=== PATIENT | female | born 1965 | race Caucasian/White ===

== ENCOUNTER 2016-11-22 08:35 | Emergency (ER) | payer MEDICAID, OTHER ==
[~2016-11-22] VITALS: Ht 175.3 cm; Wt 108.9 kg
[2016-11-22 08:48] VITALS: BP 116/85
== END 2016-11-22 12:07 | disposition home or self-care (01) ==
LOC: ER 08:35
DX: N20.0 Calculus of kidney (principal); N83.201 Unspecified ovarian cyst, right side
CPT/HCPCS: 71020; 74176; 93005

== ENCOUNTER 2017-09-26 13:46 | Inpatient (IN) | payer MEDICAID ==
[~2017-09-26] VITALS: Ht 175.3 cm; Wt 113.0 kg
[2017-09-26] MEDS ORDERED: SODIUM CHLORIDE 0.9% 1,000 ML IV ONE (14:50)
[2017-09-26] MEDS ORDERED: CLINDAMYCIN 600MG IV 50 ML IV ONE (15:00)
[2017-09-26] MEDS ORDERED: KETOROLAC TROMETH 30 MG/ML 1ML VIAL IV ONE (15:00)
[2017-09-26 15:28] LABS: Basophils # (auto) 0 uL; Basophils % (auto) 0.3 % (0.0-2.0); Eosinophils # (auto) 0.3 uL; Eosinophils % (auto) 2.4 % (0.0-7.0); Hematocrit 34.9 % (36.0-46.0); Hemoglobin 11.6 g/dL (12.2-16.2); Lymphocytes # (auto) 1.4 uL; Lymphocytes % (auto) 12.3 % (10.0-50.0); Mean Corpuscular Hemoglobin 28.9 pg (28.0-32.0); Mean Corpuscular Hgb Conc. 33.2 g/dL (32.0-36.0); Mean Corpuscular Volume 87.2 fL (80.0-100.0); Monocytes # (auto) 0.6 uL; Monocytes % (auto) 5.3 % (0.0-12.0); Neutrophils # (auto) 9.3 uL; Neutrophils % (auto) 79.7 % (37.0-80.0); Platelet Count (auto) 332 10^3/uL (140-450); Red Cell Distribution Width 13.9 % (11.8-14.3); White Blood Cell 11.7 10^3/uL (4.4-10.8)
[2017-09-26] MEDS ORDERED: TEMAZEPAM 15 MG CAP PO PRN (15:45)
[2017-09-26] MEDS ORDERED: LACTULOSE 20Gm/30ML SOLN PO PRN (15:45)
[2017-09-26] MEDS ORDERED: DEXTROSE (50%) 50ML SYRG IV PRN (15:45)
[2017-09-26] MEDS ORDERED: HYDROcodone-ACET 5/325MG TAB PO PRN (15:45)
[2017-09-26] MEDS ORDERED: MORPHINE SULF INJ 2 MG/ML SYRINGE 1ML IV PRN ×2 (15:45)
[2017-09-26] MEDS ORDERED: NITROGLYCERIN 0.4 MG SL TAB SL PRN (15:45)
[2017-09-26 15:49] LABS: Albumin 2.7 g/dL (3.4-5.0); BUN/Creatinine Ratio 23.6; Bilirubin, Total 0.6 mg/dL (0.2-1.0); Calcium 9.5 mg/dL (8.5-10.1); Magnesium 2.1 mg/dL (1.6-2.6); Potassium 3.6 mmol/L (3.5-5.1); Total Protein 8.7 g/dL (6.4-8.2)
[2017-09-26 16:03] LABS: Urine Bacteria NONE SEEN /hpf (None Seen); Urine Blood Negative /uL (Negative); Urine Budding Yeast OCCASIONAL /hpf (None Seen); Urine Specific Gravity 1.038 (1.001-1.035); Urine WBC 1 /hpf (0 - 5)
[2017-09-26] MEDS: SODIUM CHLORIDE 0.9% 1,000 ML IV SCH (16:03)
[2017-09-26] MEDS: PROMETHAZINE HCL 25 MG/ML 1ML IV PRN ×2 (16:06→22:06)
[2017-09-26] MEDS: ACCU-CHEK COMFORT CURVE STRIP VI SCH ×2 (16:15→22:08)
[2017-09-26] MEDS ORDERED: cefTRIAXone 1GM/10ml IVPUSH 10 ML IV SCH (16:15)
[2017-09-26] MEDS: InsuLIN REG 1unit/0.01ml Soln (100units/ml) SC SCH ×2 (16:15→22:00)
[2017-09-26] MEDS ORDERED: IOHEXOL 300 MG/ML 100ML BOTTLE IJ ONE (16:40)
[2017-09-26] MEDS ORDERED: PIPERACILLIN-TAZOB 3.375GM 50 ML IV ONE (17:30)
[2017-09-26] MEDS ORDERED: VANCOMYCIN PER PHARMACY 0 MG IV SCH (17:30)
[2017-09-26] MEDS ORDERED: VANCOMYCIN 1GM/250ML 250 ML IV ONE (19:00)
[2017-09-26 19:07] VITALS: BP 154/91
[2017-09-26] MEDS ORDERED: LORA-654 PO (19:23)
[2017-09-26] MEDS ORDERED: METF-370 PO (19:23)
[2017-09-26] MEDS ORDERED: IBUP600T27 PO (19:23)
[2017-09-26] MEDS ORDERED: INSUINJ37 SC ×2 (19:23→19:24)
[2017-09-26] MEDS ORDERED: ACETAMINOPHEN 500 MG TAB PO ONE (21:56)
[2017-09-26 22:00] VITALS: BP 154/91
[2017-09-26] MEDS ORDERED: CLINDAMYCIN 600MG IV 50 ML IV SCH (22:00)
[2017-09-27] MEDS: PIPERACILLIN-TAZOB 3.375GM 50 ML IV SCH ×4 (00:23→17:30)
[2017-09-27] MEDS: LORazepam 0.5 MG TAB PO PRN (00:24)
[2017-09-27] MEDS: SODIUM CHLORIDE 0.9% 1,000 ML IV SCH ×3 (01:58→21:58)
[2017-09-27] MEDS: ACCU-CHEK COMFORT CURVE STRIP VI SCH ×4 (06:07→22:00)
[2017-09-27] MEDS: VANCOMYCIN 1,250 MG in D5W 5% 250 ML IV SCH ×2 (06:07→17:50)
[2017-09-27] MEDS: ACETAMINOPHEN 500 MG TAB PO PRN ×3 (06:07→17:49)
[2017-09-27] MEDS: InsuLIN REG 1unit/0.01ml Soln (100units/ml) SC SCH ×4 (06:59→22:00)
[2017-09-27 09:00] VITALS: BP 131/73
[2017-09-27] MEDS ORDERED: SENNA 8.6 MG TAB PO ONE (12:45)
[2017-09-27] MEDS ORDERED: LACTULOSE 20Gm/30ML SOLN PO ONE (12:45)
[2017-09-27 14:00] VITALS: BP 131/69
[2017-09-27] MEDS: ENOXAPARIN SOD 40 MG/0.4 ML SYRINGE SC SCH (16:36)
[2017-09-27 17:00] VITALS: BP 133/65
[2017-09-27] MEDS: guaiFENesin-DM 100/10mg/5ml SYR GT PRN (18:17)
[2017-09-27] MEDS: PROMETHAZINE HCL 25 MG/ML 1ML IV PRN (18:19)
[2017-09-27 22:20] VITALS: BP 127/62
[2017-09-28] MEDS: ACETAMINOPHEN 500 MG TAB PO PRN ×3 (02:01→15:44)
[2017-09-28] MEDS: guaiFENesin-DM 100/10mg/5ml SYR GT PRN ×2 (02:23→15:44)
[2017-09-28] MEDS: LORazepam 0.5 MG TAB PO PRN (02:24)
[2017-09-28 04:42] VITALS: BP 128/69
[2017-09-28] MEDS: PIPERACILLIN-TAZOB 3.375GM 50 ML IV SCH ×4 (06:00→17:09)
[2017-09-28] MEDS: VANCOMYCIN 1,250 MG in D5W 5% 250 ML IV SCH ×2 (06:03→18:19)
[2017-09-28 06:09] LABS: Basophils # (auto) 0 uL; Basophils % (auto) 0.4 % (0.0-2.0); Eosinophils # (auto) 0.1 uL; Eosinophils % (auto) 0.9 % (0.0-7.0); Hematocrit 31.1 % (36.0-46.0); Hemoglobin 10.1 g/dL (12.2-16.2); Lymphocytes # (auto) 1.8 uL; Mean Corpuscular Hemoglobin 28.1 pg (28.0-32.0); Mean Corpuscular Hgb Conc. 32.5 g/dL (32.0-36.0); Mean Corpuscular Volume 86.5 fL (80.0-100.0); Monocytes # (auto) 0.7 uL; Monocytes % (auto) 6.2 % (0.0-12.0); Neutrophils # (auto) 8.6 uL; Neutrophils % (auto) 76.5 % (37.0-80.0); Nucleated Red Blood Cells % 0.1 %; Platelet Count (auto) 301 10^3/uL (140-450); Red Cell Distribution Width 13.9 % (11.8-14.3); White Blood Cell 11.3 10^3/uL (4.4-10.8)
[2017-09-28 06:31] LABS: BUN/Creatinine Ratio 12.7; Calcium 7.9 mg/dL (8.5-10.1); Magnesium 1.9 mg/dL (1.6-2.6); Potassium 3.5 mmol/L (3.5-5.1)
[2017-09-28 06:46] LABS: INR 1.15 (0.9-1.15); Partial Thromboplastin Time 29.1 sec (22.64-33.71); Prothrombin Time 12.5 sec (9.37-12.3)
[2017-09-28] MEDS: PROMETHAZINE HCL 25 MG/ML 1ML IV PRN ×2 (06:50→15:44)
[2017-09-28] MEDS: InsuLIN REG 1unit/0.01ml Soln (100units/ml) SC SCH ×4 (07:00→22:00)
[2017-09-28] MEDS: ACCU-CHEK COMFORT CURVE STRIP VI SCH ×4 (07:00→22:00)
[2017-09-28] MEDS: SODIUM CHLORIDE 0.9% 1,000 ML IV SCH ×2 (07:58→17:09)
[2017-09-28 09:00] VITALS: BP 132/72
[2017-09-28] MEDS: ENOXAPARIN SOD 40 MG/0.4 ML SYRINGE SC SCH (11:50)
[2017-09-28 13:00] VITALS: BP 124/69
[2017-09-28 17:00] VITALS: BP 142/71
[2017-09-28] MEDS ORDERED: INSULIN LANTUS (GLARGINE) 1 /0.01ml (100units/ml) SC SCH (22:00)
[2017-09-28 22:53] VITALS: BP_SYST 128
[2017-09-29] MEDS: ACETAMINOPHEN 500 MG TAB PO PRN ×2 (00:38→16:14)
[2017-09-29] MEDS: guaiFENesin-DM 100/10mg/5ml SYR GT PRN (00:38)
[2017-09-29] MEDS: PROMETHAZINE HCL 25 MG/ML 1ML IV PRN ×2 (00:51→18:49)
[2017-09-29] MEDS: LORazepam 0.5 MG TAB PO PRN (01:07)
[2017-09-29] MEDS: VANCOMYCIN 1,250 MG in D5W 5% 250 ML IV SCH ×3 (02:00→23:42)
[2017-09-29] MEDS: SODIUM CHLORIDE 0.9% 1,000 ML IV SCH (04:20)
[2017-09-29 05:29] VITALS: BP 111/56
[2017-09-29] MEDS: PIPERACILLIN-TAZOB 3.375GM 50 ML IV SCH ×4 (06:00→18:12)
[2017-09-29] MEDS: ACCU-CHEK COMFORT CURVE STRIP VI SCH ×4 (06:06→21:41)
[2017-09-29 06:44] LABS: Basophils # (auto) 0 uL; Basophils % (auto) 0.4 % (0.0-2.0); Eosinophils # (auto) 0.2 uL; Hematocrit 31.5 % (36.0-46.0); Hemoglobin 10.5 g/dL (12.2-16.2); Lymphocytes # (auto) 1.4 uL; Lymphocytes % (auto) 15.2 % (10.0-50.0); Mean Corpuscular Hemoglobin 28.9 pg (28.0-32.0); Mean Corpuscular Hgb Conc. 33.2 g/dL (32.0-36.0); Monocytes # (auto) 0.6 uL; Monocytes % (auto) 6.2 % (0.0-12.0); Neutrophils % (auto) 76.2 % (37.0-80.0); Platelet Count (auto) 302 10^3/uL (140-450); Red Blood Cells 3.62 10^6/uL (4.0-5.20); White Blood Cell 9.2 10^3/uL (4.4-10.8)
[2017-09-29] MEDS: InsuLIN REG 1unit/0.01ml Soln (100units/ml) SC SCH ×4 (07:00→21:42)
[2017-09-29 07:03] LABS: INR 1.08 (0.9-1.15); Partial Thromboplastin Time 28.7 sec (22.64-33.71); Prothrombin Time 11.8 sec (9.37-12.3)
[2017-09-29 07:12] LABS: Potassium 3.7 mmol/L (3.5-5.1)
[2017-09-29 09:00] VITALS: BP 125/77
[2017-09-29] MEDS ORDERED: InsuLIN REG 1unit/0.01ml Soln (100units/ml) ONE (09:12)
[2017-09-29] MEDS ORDERED: ACCU-CHEK COMFORT CURVE STRIP VI ONE (09:15)
[2017-09-29] MEDS ORDERED: ePHEDrine SULFATE 50 MG/ML AMP IV PRN (09:15)
[2017-09-29] MEDS ORDERED: LABETALOL HCL 5 MG/ML 4ML SYRINGE IV PRN (09:15)
[2017-09-29] MEDS ORDERED: ONDANSETRON HCL 4 MG/2 ML VIAL IV ONE (09:15)
[2017-09-29] MEDS ORDERED: KETOROLAC TROMETH 30 MG/ML 1ML VIAL IV ONE (09:15)
[2017-09-29] MEDS ORDERED: HYDROmorphone HCL 2 MG/ML VL IV PRN (09:15)
[2017-09-29] MEDS ORDERED: MIDAZOLAM HCL 1MG/1ML-2 ML VIAL IV PRN (09:15)
[2017-09-29] MEDS ORDERED: fentaNYL CITRATE 100 MCG/2 ML VL ONE (09:21)
[2017-09-29] MEDS ORDERED: MIDAZOLAM HCL 1MG/1ML-2 ML VIAL ONE (09:21)
[2017-09-29] MEDS ORDERED: PROPOFOL 10 MG/ML 20 ML IV ONE ×2 (09:46→09:47)
[2017-09-29] MEDS ORDERED: MORPHINE SULF INJ 2 MG/ML SYRINGE 1ML IV ONE (10:00)
[2017-09-29] MEDS: ENOXAPARIN SOD 40 MG/0.4 ML SYRINGE SC SCH (11:03)
[2017-09-29 13:00] VITALS: BP 121/67
[2017-09-29] MEDS: diphenhdrAMINE HCL 50 MG/1 ML VL IV PRN (16:09)
[2017-09-29 17:00] VITALS: BP 116/64
[2017-09-29] MEDS: metFORMIN HYDROCHLORIDE 500 MG TAB PO SCH (18:12)
[2017-09-29] MEDS: INSULIN LANTUS (GLARGINE) 1 /0.01ml (100units/ml) SC SCH (21:46)
[2017-09-29 22:37] VITALS: BP 101/58
[2017-09-30] MEDS: PIPERACILLIN-TAZOB 3.375GM 50 ML IV SCH ×2 (00:55→06:44)
[2017-09-30] MEDS: ACETAMINOPHEN 500 MG TAB PO PRN ×3 (02:53→22:05)
[2017-09-30] MEDS: guaiFENesin-DM 100/10mg/5ml SYR GT PRN ×2 (02:53→18:18)
[2017-09-30] MEDS: PROMETHAZINE HCL 25 MG/ML 1ML IV PRN ×2 (02:54→14:50)
[2017-09-30] MEDS: diphenhdrAMINE HCL 50 MG/1 ML VL IV PRN (02:55)
[2017-09-30] MEDS: VANCOMYCIN 1,250 MG in D5W 5% 250 ML IV SCH ×2 (04:29→13:00)
[2017-09-30 04:59] VITALS: BP 110/64
[2017-09-30] MEDS: INSULIN LANTUS (GLARGINE) 1 /0.01ml (100units/ml) SC SCH ×2 (06:39→22:00)
[2017-09-30] MEDS: metFORMIN HYDROCHLORIDE 500 MG TAB PO SCH (06:42)
[2017-09-30] MEDS: ACCU-CHEK COMFORT CURVE STRIP VI SCH ×4 (06:43→22:06)
[2017-09-30] MEDS: InsuLIN REG 1unit/0.01ml Soln (100units/ml) SC SCH ×4 (06:43→22:05)
[2017-09-30] MEDS: LORazepam 0.5 MG TAB PO PRN ×2 (06:44→22:05)
[2017-09-30 06:48] LABS: Basophils # (auto) 0 uL; Basophils % (auto) 0.6 % (0.0-2.0); Eosinophils # (auto) 0.4 uL; Eosinophils % (auto) 7.8 % (0.0-7.0); Hematocrit 29.9 % (36.0-46.0); Hemoglobin 9.9 g/dL (12.2-16.2); Lymphocytes # (auto) 1.5 uL; Lymphocytes % (auto) 25.9 % (10.0-50.0); Mean Corpuscular Hgb Conc. 33.1 g/dL (32.0-36.0); Mean Corpuscular Volume 87.4 fL (80.0-100.0); Monocytes # (auto) 0.3 uL; Neutrophils # (auto) 3.4 uL; Neutrophils % (auto) 59.7 % (37.0-80.0); Platelet Count (auto) 308 10^3/uL (140-450); Red Blood Cells 3.42 10^6/uL (4.0-5.20); Red Cell Distribution Width 14.1 % (11.8-14.3); White Blood Cell 5.7 10^3/uL (4.4-10.8)
[2017-09-30 06:56] LABS: BUN/Creatinine Ratio 14.3; Calcium 8.3 mg/dL (8.5-10.1); Potassium 3.7 mmol/L (3.5-5.1)
[2017-09-30 09:00] VITALS: BP 127/71
[2017-09-30] MEDS: ENOXAPARIN SOD 40 MG/0.4 ML SYRINGE SC SCH ×2 (10:00→10:13)
[2017-09-30] MEDS ORDERED: LEVOFLOXACIN 250 MG TAB PO ONE (10:15)
[2017-09-30] MEDS ORDERED: ASCORBIC ACID 500 MG TAB PO ONE (10:15)
[2017-09-30] MEDS ORDERED: guaiFENesin-DM 100/10mg/5ml SYR PO PRN (10:15)
[2017-09-30] MEDS ORDERED: guaiFENesin-DM 100/10mg/5ml SYR PO ONE (10:15)
[2017-09-30 13:00] VITALS: BP 135/56
[2017-09-30] MEDS ORDERED: POTASSIUM CHL 10 Meq TABLET PO ONE (14:00)
[2017-09-30] MEDS ORDERED: FUROSEMIDE 40 MG TAB PO ONE (14:15)
[2017-09-30] MEDS: HYDROCORTONE 1% TOPICAL CREAM 30 GM TUBE TOP SCH ×2 (14:45→22:06)
[2017-09-30 17:00] VITALS: BP 148/85
[2017-09-30] MEDS ORDERED: MULTIPLE VITAMIN TAB PO ONE (18:00)
[2017-09-30] MEDS: metFORMIN HYDROCHLORIDE 850 MG TAB PO SCH (18:16)
[2017-09-30 22:00] VITALS: BP 141/79
[2017-09-30] MEDS: ASCORBIC ACID 500 MG TAB PO SCH ×2 (22:00→22:04)
[2017-09-30] MEDS ORDERED: diphenhdrAMINE HCL 50 MG/1 ML VL IV ONE (22:30)
[2017-10-01] MEDS: guaiFENesin-DM 100/10mg/5ml SYR GT PRN (03:49)
[2017-10-01] MEDS: ACETAMINOPHEN 500 MG TAB PO PRN ×3 (03:50→22:37)
[2017-10-01 05:00] VITALS: BP 124/72
[2017-10-01] MEDS: INSULIN LANTUS (GLARGINE) 1 /0.01ml (100units/ml) SC SCH ×2 (06:44→22:41)
[2017-10-01] MEDS: ACCU-CHEK COMFORT CURVE STRIP VI SCH ×4 (06:45→22:30)
[2017-10-01] MEDS: metFORMIN HYDROCHLORIDE 850 MG TAB PO SCH (06:45)
[2017-10-01] MEDS: InsuLIN REG 1unit/0.01ml Soln (100units/ml) SC SCH ×4 (06:45→22:36)
[2017-10-01] MEDS: HYDROCORTONE 1% TOPICAL CREAM 30 GM TUBE TOP SCH ×3 (06:45→22:30)
[2017-10-01 07:43] LABS: Basophils # (auto) 0 uL; Basophils % (auto) 0.7 % (0.0-2.0); Eosinophils # (auto) 0.3 uL; Eosinophils % (auto) 4.6 % (0.0-7.0); Hemoglobin 10.4 g/dL (12.2-16.2); Lymphocytes # (auto) 1.4 uL; Lymphocytes % (auto) 22.5 % (10.0-50.0); Mean Corpuscular Hemoglobin 29.1 pg (28.0-32.0); Mean Corpuscular Hgb Conc. 33.5 g/dL (32.0-36.0); Mean Corpuscular Volume 86.8 fL (80.0-100.0); Monocytes # (auto) 0.4 uL; Monocytes % (auto) 7.1 % (0.0-12.0); Neutrophils # (auto) 4.1 uL; Neutrophils % (auto) 65.1 % (37.0-80.0); Platelet Count (auto) 346 10^3/uL (140-450); Red Blood Cells 3.58 10^6/uL (4.0-5.20); Red Cell Distribution Width 14.3 % (11.8-14.3); White Blood Cell 6.3 10^3/uL (4.4-10.8)
[2017-10-01 07:59] LABS: BUN/Creatinine Ratio 10.3; Calcium 8.8 mg/dL (8.5-10.1); Potassium 3.9 mmol/L (3.5-5.1)
[2017-10-01 09:00] VITALS: BP 119/70
[2017-10-01] MEDS ORDERED: VANCOMYCIN 1GM/250ML 250 ML IV SCH (09:00)
[2017-10-01] MEDS: ASCORBIC ACID 500 MG TAB PO SCH ×3 (09:56→22:35)
[2017-10-01] MEDS: MULTIPLE VITAMIN TAB PO SCH (09:56)
[2017-10-01] MEDS: ENOXAPARIN SOD 40 MG/0.4 ML SYRINGE SC SCH (09:57)
[2017-10-01] MEDS ORDERED: FUROSEMIDE 40 MG TAB PO SCH (10:00)
[2017-10-01] MEDS ORDERED: LEVOFLOXACIN 250 MG TAB PO SCH (10:00)
[2017-10-01] MEDS ORDERED: POTASSIUM CHL 10 Meq TABLET PO SCH (10:00)
[2017-10-01] MEDS: PROMETHAZINE HCL 25 MG/ML 1ML IV PRN ×2 (12:04→17:12)
[2017-10-01 13:00] VITALS: BP 133/81
[2017-10-01] MEDS: CLINDAMYCIN HCL 150 MG CAP PO SCH ×2 (16:54→22:35)
[2017-10-01] MEDS: LORazepam 0.5 MG TAB PO PRN (17:12)
[2017-10-01 17:28] VITALS: BP 139/78
[2017-10-01 22:11] VITALS: BP 135/76
[2017-10-02 04:42] VITALS: BP 130/75
[2017-10-02] MEDS: ACETAMINOPHEN 500 MG TAB PO PRN ×2 (04:48→13:26)
[2017-10-02] MEDS: CLINDAMYCIN HCL 150 MG CAP PO SCH ×2 (05:39→14:00)
[2017-10-02] MEDS: ACCU-CHEK COMFORT CURVE STRIP VI SCH ×2 (05:40→11:59)
[2017-10-02] MEDS: HYDROCORTONE 1% TOPICAL CREAM 30 GM TUBE TOP SCH ×2 (05:40→14:00)
[2017-10-02] MEDS: INSULIN LANTUS (GLARGINE) 1 /0.01ml (100units/ml) SC SCH (06:15)
[2017-10-02] MEDS: InsuLIN REG 1unit/0.01ml Soln (100units/ml) SC SCH ×2 (06:18→11:59)
[2017-10-02 06:24] LABS: Basophils # (auto) 0 uL; Basophils % (auto) 0.4 % (0.0-2.0); Eosinophils # (auto) 0.2 uL; Eosinophils % (auto) 4.1 % (0.0-7.0); Hematocrit 33.1 % (36.0-46.0); Hemoglobin 10.9 g/dL (12.2-16.2); Lymphocytes # (auto) 1.2 uL; Lymphocytes % (auto) 22.1 % (10.0-50.0); Mean Corpuscular Hemoglobin 28.6 pg (28.0-32.0); Mean Corpuscular Hgb Conc. 32.8 g/dL (32.0-36.0); Monocytes # (auto) 0.4 uL; Monocytes % (auto) 7.6 % (0.0-12.0); Neutrophils # (auto) 3.7 uL; Neutrophils % (auto) 65.8 % (37.0-80.0); Nucleated Red Blood Cells % 0.1 %; Platelet Count (auto) 388 10^3/uL (140-450); Red Blood Cells 3.81 10^6/uL (4.0-5.20); Red Cell Distribution Width 14.5 % (11.8-14.3); White Blood Cell 5.6 10^3/uL (4.4-10.8)
[2017-10-02 07:03] LABS: BUN/Creatinine Ratio 9.9; Calcium 9.3 mg/dL (8.5-10.1); Potassium 4.3 mmol/L (3.5-5.1)
[2017-10-02 09:00] VITALS: BP 137/71
[2017-10-02] MEDS: ASCORBIC ACID 500 MG TAB PO SCH (10:39)
[2017-10-02] MEDS: MULTIPLE VITAMIN TAB PO SCH (10:39)
[2017-10-02] MEDS: ENOXAPARIN SOD 40 MG/0.4 ML SYRINGE SC SCH (10:40)
[2017-10-02 12:26] VITALS: BP 147/73
[2017-10-02 12:36] VITALS: BP 147/73
[2017-10-02 12:53] VITALS: BP 147/73
== END 2017-10-02 14:10 | DRG 710 ==
LOC: ER 13:46 → TELE 13:47 → TELE-EAST 18:05 → EAST 09-29 14:31
PROVIDERS: ADMIT Internal Medicine; ATTEND Internal Medicine
PROC: 0J990ZZ Drainage of Buttock Subcutaneous Tissue and Fascia, Open Approach (ICD-10-PCS; principal; 2017-09-29 09:12)
DX: A41.01 Sepsis due to Methicillin susceptible Staphylococcus aureus (principal); E43 Unspecified severe protein-calorie malnutrition; N17.9 Acute kidney failure, unspecified; E11.40 Type 2 diabetes mellitus with diabetic neuropathy, unspecified; E11.65 Type 2 diabetes mellitus with hyperglycemia; I50.9 Heart failure, unspecified; L03.115 Cellulitis of right lower limb; K59.00 Constipation, unspecified; F32.9 Major depressive disorder, single episode, unspecified; F41.9 Anxiety disorder, unspecified; L02.415 Cutaneous abscess of right lower limb; J06.9 Acute upper respiratory infection, unspecified; L30.9 Dermatitis, unspecified; N90.3 Dysplasia of vulva, unspecified; E66.9 Obesity, unspecified; M19.90 Unspecified osteoarthritis, unspecified site; L02.31 Cutaneous abscess of buttock; J45.909 Unspecified asthma, uncomplicated; Z80.9 Family history of malignant neoplasm, unspecified; Z83.3 Family history of diabetes mellitus; Z68.36 Body mass index [BMI] 36.0-36.9, adult; Z90.89 Acquired absence of other organs; Z98.51 Tubal ligation status; Z88.2 Allergy status to sulfonamides
CPT/HCPCS: 36415; 71045; 73030; 73701; 76881; 80048; 80053; 80202; 81001; 82565; 82962; 83036; 83605; 83735; 84100; 85025; 85610; 85652; 85730; 86850; 86900; 86901; 87040; 87070; 87075; 87077; 87186; 87205; 87400; 93971; 94761; 96361; 96365; 96375; J1815; J1885; J2250; J2405; J2543; J2704; J3490; J7060

== ENCOUNTER 2018-01-25 10:04 | Inpatient (IN) | payer MEDICAID, OTHER ==
[~2018-01-25] VITALS: Ht 175.3 cm; Wt 108.9 kg
[~2018-01-25 10:04] MED LIST: INSUINJ37 SC; LORA-654 PO
[2018-01-25 10:44] LABS: Basophils # (auto) 0.1 uL; Basophils % (auto) 1.2 % (0.0-2.0); Eosinophils # (auto) 0.2 uL; Eosinophils % (auto) 3.5 % (0.0-7.0); Hematocrit 37.8 % (36.0-46.0); Hemoglobin 12.6 g/dL (12.2-16.2); Lymphocytes # (auto) 1.7 uL; Lymphocytes % (auto) 28.8 % (10.0-50.0); Mean Corpuscular Hemoglobin 29.1 pg (28.0-32.0); Mean Corpuscular Hgb Conc. 33.4 g/dL (32.0-36.0); Mean Corpuscular Volume 87.2 fL (80.0-100.0); Monocytes # (auto) 0.3 uL; Monocytes % (auto) 4.8 % (0.0-12.0); Neutrophils # (auto) 3.7 uL; Neutrophils % (auto) 61.7 % (37.0-80.0); Platelet Count (auto) 260 10^3/uL (140-450); Red Blood Cells 4.33 10^6/uL (4.0-5.20); Red Cell Distribution Width 13.8 % (11.8-14.3)
[2018-01-25 11:04] LABS: Albumin 3.1 g/dL (3.4-5.0); BUN/Creatinine Ratio 17.8; Bilirubin, Total 0.3 mg/dL (0.2-1.0); Calcium 8.8 mg/dL (8.5-10.1); Potassium 4.5 mmol/L (3.5-5.1); Total Protein 7.6 g/dL (6.4-8.2)
[2018-01-25] MEDS ORDERED: SODIUM CHLORIDE 0.9% 1,000 ML IVB ONE (11:28)
[2018-01-25] MEDS ORDERED: cefTRIAXone 1GM/10ml IVPUSH 10 ML IV ONE (11:30)
[2018-01-25] MEDS ORDERED: InsuLIN REG 1unit/0.01ml Soln (100units/ml) SC ONE (11:30)
[2018-01-25 11:57] LABS: INR 0.92 (0.9-1.15); Partial Thromboplastin Time 25.4 sec (23.78-33.04); Prothrombin Time 9.9 sec (9.27-12.13)
[2018-01-25 12:12] LABS: Urine Bacteria NONE SEEN /hpf (None Seen); Urine Blood Negative /uL (Negative); Urine Specific Gravity 1.025 (1.001-1.035); Urine WBC <1 /hpf (0 - 5)
[2018-01-25] MEDS ORDERED: ONDANSETRON HCL 4 MG/2 ML VIAL IV ONE (12:15)
[2018-01-25] MEDS ORDERED: MORPHINE SULFATE 8mg/ml INJ SDV IV ONE (12:15)
[2018-01-25] MEDS ORDERED: DEXTROSE (50%) 50ML SYRG IV PRN (15:00)
[2018-01-25] MEDS ORDERED: cloNIDine HCL 0.1 MG TAB PO PRN (15:00)
[2018-01-25 15:09] VITALS: BP 139/47
[2018-01-25] MEDS ORDERED: NITROGLYCERIN 0.4 MG SL TAB SL PRN (15:15)
[2018-01-25] MEDS ORDERED: MORPHINE SULFATE 8mg/ml INJ SDV IV PRN ×2 (15:15)
[2018-01-25] MEDS ORDERED: DOCUSATE SOD 100 MG CAP PO PRN (15:15)
[2018-01-25] MEDS ORDERED: TEMAZEPAM 15 MG CAP PO PRN (15:15)
[2018-01-25] MEDS ORDERED: HYDROcodone-ACET 5/325MG TAB PO PRN (15:15)
[2018-01-25] MEDS ORDERED: ONDANSETRON HCL 4 MG/2 ML VIAL IV PRN (15:15)
[2018-01-25 17:07] VITALS: BP 116/100
[2018-01-25] MEDS ORDERED: TAMS0.4C36 PO (17:14)
[2018-01-25] MEDS ORDERED: IBUP800T24 PO (17:14)
[2018-01-25] MEDS ORDERED: METF-371 PO (17:14)
[2018-01-25] MEDS ORDERED: MONT10TA23 PO (17:14)
[2018-01-25] MEDS: TAMSULOSIN HYDROCHLORIDE 0.4 MG CAP PO SCH (17:47)
[2018-01-25] MEDS: ACCU-CHEK COMFORT CURVE STRIP VI SCH ×2 (17:48→23:46)
[2018-01-25] MEDS: InsuLIN REG 1unit/0.01ml Soln (100units/ml) SC SCH ×2 (17:53→23:46)
[2018-01-25] MEDS: ALBUTEROL SULF 2.5 MG/0.5ML(0.5%) NEB SOLN NEB SCH ×2 (18:00→18:55)
[2018-01-25] MEDS: IBUPROFEN 800 MG TAB PO PRN (18:38)
[2018-01-25] MEDS: Boost Glucose Control 8 Ounces PO SCH (18:38)
[2018-01-25] MEDS: MONTELUKAST SODIUM 10 MG TAB PO SCH (21:09)
[2018-01-25] MEDS: FAMOTIDINE 20 MG TAB PO SCH (21:09)
[2018-01-25] MEDS: ASCORBIC ACID 500 MG TAB PO SCH (21:09)
[2018-01-25] MEDS: ACETAMINOPHEN 325 MG TAB PO PRN (21:10)
[2018-01-25] MEDS: LORazepam 0.5 MG TAB PO PRN (21:10)
[2018-01-25] MEDS: CLINDAMYCIN 300MG IV 50 ML IV SCH (21:10)
[2018-01-25] MEDS: SODIUM CHLOR 0.9% PF (SALINE LOCK) 10ML VIAL/SYR IV SCH (21:11)
[2018-01-25] MEDS: GABAPENTIN 300 MG CAP PO SCH (21:11)
[2018-01-25 21:50] VITALS: BP 131/70
[2018-01-25] MEDS: INSULIN LANTUS (GLARGINE) 1 /0.01ml (100units/ml) SC SCH (23:19)
[2018-01-26 04:50] VITALS: BP 12/74
[2018-01-26] MEDS ORDERED: diphenhdrAMINE HCL 25 MG CAP PO ONE (05:15)
[2018-01-26] MEDS: SODIUM CHLOR 0.9% PF (SALINE LOCK) 10ML VIAL/SYR IV SCH ×3 (06:00→22:29)
[2018-01-26] MEDS: ACCU-CHEK COMFORT CURVE STRIP VI SCH ×4 (06:00→23:54)
[2018-01-26] MEDS: ALBUTEROL SULF 2.5 MG/0.5ML(0.5%) NEB SOLN NEB SCH ×4 (06:00→19:25)
[2018-01-26 06:35] LABS: Basophils # (auto) 0 uL; Basophils % (auto) 0.7 % (0.0-2.0); Eosinophils # (auto) 0.3 uL; Eosinophils % (auto) 5.3 % (0.0-7.0); Hematocrit 34.8 % (36.0-46.0); Hemoglobin 11.8 g/dL (12.2-16.2); Lymphocytes # (auto) 2.1 uL; Lymphocytes % (auto) 34.5 % (10.0-50.0); Mean Corpuscular Hemoglobin 29.5 pg (28.0-32.0); Mean Corpuscular Hgb Conc. 33.9 g/dL (32.0-36.0); Mean Corpuscular Volume 87.2 fL (80.0-100.0); Monocytes # (auto) 0.4 uL; Neutrophils # (auto) 3.2 uL; Neutrophils % (auto) 53.5 % (37.0-80.0); Nucleated Red Blood Cells % 0.1 %; Platelet Count (auto) 225 10^3/uL (140-450); Red Blood Cells 3.99 10^6/uL (4.0-5.20); Red Cell Distribution Width 13.5 % (11.8-14.3)
[2018-01-26 06:58] LABS: Albumin 2.7 g/dL (3.4-5.0); BUN/Creatinine Ratio 24.6; Bilirubin, Total 0.2 mg/dL (0.2-1.0); Calcium 8.6 mg/dL (8.5-10.1); Potassium 3.9 mmol/L (3.5-5.1); Total Protein 6.8 g/dL (6.4-8.2)
[2018-01-26] MEDS: InsuLIN REG 1unit/0.01ml Soln (100units/ml) SC SCH ×4 (06:59→23:55)
[2018-01-26] MEDS: CLINDAMYCIN 300MG IV 50 ML IV SCH ×3 (07:00→22:28)
[2018-01-26] MEDS: Boost Glucose Control 8 Ounces PO SCH ×3 (08:00→18:00)
[2018-01-26 09:00] VITALS: BP 119/73
[2018-01-26] MEDS: IBUPROFEN 800 MG TAB PO PRN ×2 (09:02→16:23)
[2018-01-26] MEDS: FAMOTIDINE 20 MG TAB PO SCH ×2 (09:02→22:29)
[2018-01-26] MEDS: cefTRIAXone 1GM/10ml IVPUSH 10 ML IV SCH (09:02)
[2018-01-26] MEDS: ZINC SULFATE 220 MG CAP PO SCH (09:02)
[2018-01-26] MEDS: MULTIPLE VITAMIN TAB PO SCH (09:02)
[2018-01-26] MEDS: ASCORBIC ACID 500 MG TAB PO SCH ×2 (09:03→22:29)
[2018-01-26] MEDS: LORATADINE 10 MG TAB PO SCH (09:13)
[2018-01-26 13:00] VITALS: BP 124/77
[2018-01-26 16:58] VITALS: BP 157/74
[2018-01-26] MEDS: TAMSULOSIN HYDROCHLORIDE 0.4 MG CAP PO SCH (17:22)
[2018-01-26] MEDS: LORazepam 0.5 MG TAB PO PRN (20:21)
[2018-01-26] MEDS: ACETAMINOPHEN 325 MG TAB PO PRN (20:21)
[2018-01-26 21:38] VITALS: BP 102/82
[2018-01-26] MEDS: GABAPENTIN 300 MG CAP PO SCH (22:00)
[2018-01-26] MEDS: MONTELUKAST SODIUM 10 MG TAB PO SCH (22:29)
[2018-01-26] MEDS: diphenhdrAMINE HCL 25 MG CAP PO PRN (22:29)
[2018-01-26] MEDS: INSULIN LANTUS (GLARGINE) 1 /0.01ml (100units/ml) SC SCH (22:38)
[2018-01-27 04:00] VITALS: BP 118/72
[2018-01-27] MEDS: SODIUM CHLOR 0.9% PF (SALINE LOCK) 10ML VIAL/SYR IV SCH ×3 (05:25→21:59)
[2018-01-27] MEDS: CLINDAMYCIN 300MG IV 50 ML IV SCH ×3 (05:25→21:59)
[2018-01-27] MEDS: InsuLIN REG 1unit/0.01ml Soln (100units/ml) SC SCH ×3 (05:29→18:03)
[2018-01-27] MEDS: ACCU-CHEK COMFORT CURVE STRIP VI SCH ×3 (05:29→18:04)
[2018-01-27 05:32] LABS: Basophils # (auto) 0 uL; Basophils % (auto) 0.4 % (0.0-2.0); Eosinophils # (auto) 0.3 uL; Eosinophils % (auto) 5.7 % (0.0-7.0); Hematocrit 34.3 % (36.0-46.0); Hemoglobin 11.9 g/dL (12.2-16.2); Lymphocytes # (auto) 1.9 uL; Lymphocytes % (auto) 31.9 % (10.0-50.0); Mean Corpuscular Hemoglobin 30.1 pg (28.0-32.0); Mean Corpuscular Hgb Conc. 34.7 g/dL (32.0-36.0); Mean Corpuscular Volume 86.8 fL (80.0-100.0); Monocytes # (auto) 0.4 uL; Monocytes % (auto) 6.4 % (0.0-12.0); Neutrophils # (auto) 3.3 uL; Neutrophils % (auto) 55.6 % (37.0-80.0); Platelet Count (auto) 228 10^3/uL (140-450); Red Blood Cells 3.95 10^6/uL (4.0-5.20); Red Cell Distribution Width 13.7 % (11.8-14.3)
[2018-01-27] MEDS: ALBUTEROL SULF 2.5 MG/0.5ML(0.5%) NEB SOLN NEB SCH ×5 (05:37→19:00)
[2018-01-27 05:56] LABS: Albumin 2.8 g/dL (3.4-5.0); BUN/Creatinine Ratio 22.6; Bilirubin, Total 0.2 mg/dL (0.2-1.0); Calcium 9.3 mg/dL (8.5-10.1)
[2018-01-27] MEDS: IBUPROFEN 800 MG TAB PO PRN (06:04)
[2018-01-27 08:00] VITALS: BP 130/66
[2018-01-27] MEDS: cefTRIAXone 1GM/10ml IVPUSH 10 ML IV SCH (09:34)
[2018-01-27] MEDS: ASCORBIC ACID 500 MG TAB PO SCH ×2 (09:35→21:58)
[2018-01-27] MEDS: MULTIPLE VITAMIN TAB PO SCH (09:35)
[2018-01-27] MEDS: ZINC SULFATE 220 MG CAP PO SCH (09:35)
[2018-01-27] MEDS: FAMOTIDINE 20 MG TAB PO SCH ×2 (09:35→21:58)
[2018-01-27] MEDS: LORATADINE 10 MG TAB PO SCH (09:35)
[2018-01-27] MEDS: Boost Glucose Control 8 Ounces PO SCH ×3 (09:35→18:03)
[2018-01-27 12:16] VITALS: BP 124/60
[2018-01-27] MEDS: diphenhdrAMINE HCL 25 MG CAP PO PRN ×2 (12:40→21:59)
[2018-01-27] MEDS ORDERED: HYDROCORTISONE 2.5% TOPICAL CREAM 30GM TUBE TOP ONE (13:15)
[2018-01-27] MEDS: HYDROCORTISONE 2.5% TOPICAL CREAM 30GM TUBE TOP SCH ×2 (14:44→22:25)
[2018-01-27 17:39] VITALS: BP 126/66
[2018-01-27] MEDS: TAMSULOSIN HYDROCHLORIDE 0.4 MG CAP PO SCH (18:03)
[2018-01-27] MEDS: MONTELUKAST SODIUM 10 MG TAB PO SCH (21:58)
[2018-01-27 22:00] VITALS: BP 118/72
[2018-01-27] MEDS: GABAPENTIN 300 MG CAP PO SCH (22:00)
[2018-01-27] MEDS: CLOTRIMAZOLE 1 % CREAM 15GM TOP SCH (22:25)
[2018-01-27] MEDS: INSULIN LANTUS (GLARGINE) 1 /0.01ml (100units/ml) SC SCH (22:26)
[2018-01-28] MEDS: ACCU-CHEK COMFORT CURVE STRIP VI SCH ×3 (00:27→11:54)
[2018-01-28] MEDS: ALBUTEROL SULF 2.5 MG/0.5ML(0.5%) NEB SOLN NEB SCH ×3 (00:45→11:01)
[2018-01-28] MEDS: InsuLIN REG 1unit/0.01ml Soln (100units/ml) SC SCH ×3 (00:49→11:55)
[2018-01-28] MEDS: IBUPROFEN 800 MG TAB PO PRN (01:02)
[2018-01-28 04:00] VITALS: BP 129/68
[2018-01-28] MEDS: CLINDAMYCIN 300MG IV 50 ML IV SCH ×2 (06:24→14:00)
[2018-01-28] MEDS: SODIUM CHLOR 0.9% PF (SALINE LOCK) 10ML VIAL/SYR IV SCH ×2 (06:26→14:00)
[2018-01-28] MEDS: Boost Glucose Control 8 Ounces PO SCH ×2 (08:45→11:50)
[2018-01-28 09:00] VITALS: BP_SYST 112; BP_SYST 129; BP_DIAS 64; BP_DIAS 68
[2018-01-28] MEDS: cefTRIAXone 1GM/10ml IVPUSH 10 ML IV SCH (09:00)
[2018-01-28] MEDS ORDERED: DOXY-216 PO (09:52)
[2018-01-28] MEDS: FAMOTIDINE 20 MG TAB PO SCH (09:58)
[2018-01-28] MEDS: MULTIPLE VITAMIN TAB PO SCH (09:58)
[2018-01-28] MEDS: ASCORBIC ACID 500 MG TAB PO SCH (09:58)
[2018-01-28] MEDS: LORATADINE 10 MG TAB PO SCH (09:58)
[2018-01-28] MEDS: ZINC SULFATE 220 MG CAP PO SCH (09:58)
[2018-01-28] MEDS: HYDROCORTISONE 2.5% TOPICAL CREAM 30GM TUBE TOP SCH (10:25)
[2018-01-28] MEDS: CLOTRIMAZOLE 1 % CREAM 15GM TOP SCH (10:25)
[2018-01-28 13:00] VITALS: BP 119/66
== END 2018-01-28 14:30 | disposition home or self-care (01) | DRG 194 ==
LOC: ER 10:04 → OVERFLOW 10:05 → EAST 16:29
PROVIDERS: ADMIT Internal Medicine; ATTEND Internal Medicine
DX: I13.0 Hypertensive heart and chronic kidney disease with heart failure and stage 1 through stage 4 chronic kidney disease, or unspecified chronic kidney disease (principal); E11.22 Type 2 diabetes mellitus with diabetic chronic kidney disease; E44.0 Moderate protein-calorie malnutrition; L03.115 Cellulitis of right lower limb; E11.65 Type 2 diabetes mellitus with hyperglycemia; E66.01 Morbid (severe) obesity due to excess calories; I50.9 Heart failure, unspecified; B35.9 Dermatophytosis, unspecified; J45.909 Unspecified asthma, uncomplicated; N18.2 Chronic kidney disease, stage 2 (mild); E78.5 Hyperlipidemia, unspecified; I50.42 Chronic combined systolic (congestive) and diastolic (congestive) heart failure; L30.9 Dermatitis, unspecified; Z83.3 Family history of diabetes mellitus; Z86.14 Personal history of Methicillin resistant Staphylococcus aureus infection; Z98.51 Tubal ligation status; Z88.2 Allergy status to sulfonamides; Z79.4 Long term (current) use of insulin; Z68.35 Body mass index [BMI] 35.0-35.9, adult
CPT/HCPCS: 36415; 71045; 76881; 80053; 81001; 82962; 83036; 83605; 83735; 83880; 85025; 85610; 85730; 87040; 87081; 93005; 93306; 93971; 94761; 96361; 96372; 96374; 96375; 97163; J1815; J2270; J2405; J3490

== ENCOUNTER 2018-09-09 16:02 | Emergency (ER) | payer MEDICAID ==
[~2018-09-09] VITALS: Ht 177.8 cm; Wt 113.4 kg
[~2018-09-09 16:02] MED LIST changes: +DOXY-216 PO; +IBUP800T24 PO; +METF-371 PO; +MONT10TA23 PO; +TAMS0.4C36 PO
[2018-09-09 16:45] VITALS: BP 153/90
== END 2018-09-09 17:53 | disposition home or self-care (01) ==
LOC: ER 16:11
DX: J01.90 Acute sinusitis, unspecified (principal); J02.9 Acute pharyngitis, unspecified; I11.0 Hypertensive heart disease with heart failure; I50.9 Heart failure, unspecified; E78.5 Hyperlipidemia, unspecified; J45.909 Unspecified asthma, uncomplicated; E11.9 Type 2 diabetes mellitus without complications; Z79.4 Long term (current) use of insulin; Z88.2 Allergy status to sulfonamides

== ENCOUNTER 2018-11-08 11:48 | Emergency (ER) | payer MEDICAID ==
[~2018-11-08] VITALS: Ht 175.3 cm; Wt 113.4 kg
[2018-11-08 12:58] VITALS: BP 152/87
== END 2018-11-08 13:00 | disposition home or self-care (01) ==
LOC: ER 11:49
DX: J32.9 Chronic sinusitis, unspecified (principal); E78.5 Hyperlipidemia, unspecified; I11.0 Hypertensive heart disease with heart failure; I50.9 Heart failure, unspecified; E11.9 Type 2 diabetes mellitus without complications; Z88.2 Allergy status to sulfonamides; Z79.899 Other long term (current) drug therapy; Z79.84 Long term (current) use of oral hypoglycemic drugs; Z98.51 Tubal ligation status